=== PATIENT | female | born 2000 ===

== ENCOUNTER 2023-08-17 13:11 | Inpatient (IN) | payer OTHER ==
[~2023-08-17] VITALS: Ht 154.9 cm; Wt 69.4 kg
[2023-08-17] MEDS ORDERED: PRENATAL + DHA1 EAC1 PO (13:33)
[2023-08-17 14:07] LABS: PH,URINE 6.5 (5.0-8.0); URINE APPEARANCE Clear; URINE BILIRRUBIN Negative (NEGATIVE); URINE BLOOD Small; URINE COLOR Yellow; URINE GLUCOSE Negative (NEGATIVE); URINE LEUKOCYTE Trace; URINE NITRATE Negative; URINE PROTEIN Negative (NEGATIVE); URINE UROBILINOGEN 0.2 E.U./dl
[2023-08-17 14:09] LABS: HEMATOCRIT 35.8 % (36.0-45.00); HEMOGLOBIN 12.3 g/dL (12.0-15.00); MEAN CELL VOLUME 88.4 fL (80.00-100.00); MEAN CORPUSCULAR HEMOGLOBIN 30.4 pg (27.00-32.0); MEAN CORPUSCULAR HGB CONC 34.4 g/dl (32.0-36.0); PLATELET COUNT 216 K/uL (150-450); RED BLOOD COUNT 4.05 M/uL (4.00-6.00); RED CELL DISTRIBUTION WIDTH 13.3 % (11.5-14.5)
[2023-08-17 14:11] LABS: URINE BACTERIA 1416.2 uL (0.0-1933); URINE EPITHELIAL CELLS 57.1 uL (0.0-38.8); URINE WBC 31.2 uL (0.0-23.2)
[2023-08-17 14:17] LABS: URINE RBC 0.8 uL (0.0-20.8)
[2023-08-17 14:25] LABS: INR < 0.93; PARTIAL THROMBOPLASTIN TIME 26.2 SECONDS (22.0-34.0); PROTHROMBIN TIME 9.8 SECONDS (9.0-11.5)
[2023-08-17 14:33] LABS: ALBUMIN 2.8 gm/dL (3.4-5.0); BILIRUBIN TOTAL 0.48 mg/dL (0.3-1.2); CREATININE SERUM 0.57 mg/dL (0.55-1.02); GFR 131.44; GLOBULINA 3.5 G/DL (2.4-3.5); POTASSIUM 4.15 mEq/L (3.5-5.1); TOTAL PROTEIN 6.3 gm/dL (6.4-8.2)
[2023-08-18 07:21] LABS: ABG PH 7.319 (7.35-7.45); ABG PO2 36.6 mmHg (80-100); BASE EXCESS -5.6 mmol/l; SaO2 63.2 %
[2023-08-18 07:22] LABS: BICARBONATE 20.1 mmol/l (23-25); Tco2 21.3 mmol/l; o2 21 %
[2023-08-19 06:52] LABS: HEMATOCRIT 33.4 % (36.0-45.00); HEMOGLOBIN 11.6 g/dL (12.0-15.00); MEAN CELL VOLUME 87.9 fL (80.00-100.00); MEAN CORPUSCULAR HEMOGLOBIN 30.7 pg (27.00-32.0); MEAN CORPUSCULAR HGB CONC 34.9 g/dl (32.0-36.0); PLATELET COUNT 182 K/uL (150-450); RED CELL DISTRIBUTION WIDTH 13.4 % (11.5-14.5)
[2023-08-20] MEDS ORDERED: NAPR500T14 PO (09:04)
== END 2023-08-20 11:55 | disposition home or self-care (01) | DRG 807 ==
LOC: EDBD 13:11 → LDR 13:11 → OB/GYN 08-18 06:26
PROVIDERS: ADMIT Student in an Organized Health Care Education/Training Program; ATTEND Student in an Organized Health Care Education/Training Program
PROC: 4A1HXCZ Monitoring of Products of Conception, Cardiac Rate, External Approach (ICD-10-PCS; 2023-08-17)
PROC: 10E0XZZ Delivery of Products of Conception, External Approach (ICD-10-PCS; principal; 2023-08-18)
PROC: 0KQM0ZZ Repair Perineum Muscle, Open Approach (ICD-10-PCS; 2023-08-18)
DX: O70.1 Second degree perineal laceration during delivery (principal); Z37.0 Single live birth; Z3A.39 39 weeks gestation of pregnancy; Z20.822 Contact with and (suspected) exposure to COVID-19